=== PATIENT | female | born 1965 | race Caucasian/White ===

== ENCOUNTER 2021-06-22 14:24 | Day surgery (SDC) | payer OTHER ==
[2021-06-22] MEDS ORDERED: BUPIVACAINE 0.5% VIAL IJ ONE (14:25)
[2021-06-22] MEDS ORDERED: Depo-Medrol 40 MG/ML IM ONE (14:25)
[2021-06-22] MEDS ORDERED: Xylocaine 1% Vial 30 ML PF IJ ONE (14:25)
--- NOTE | 2021-06-22 18:52 | XRAY ---
Indication: Bilateral SI joint injection. Intraoperative fluoroscopy provided for 19 seconds. 5 digital spot image submitted for interpretation demonstrates posterior needle tip projecting over the inferior left and right SI joint. Correlate with intraoperative findings/report.
--- NOTE | 2021-06-22 18:53 | XRAY ---
19 seconds fluoroscopy time in surgery for injections of both SI joints.
== END 2021-06-22 17:10 | disposition home or self-care (01) ==
LOC: SDC-PAIN 14:24 → SDC 14:24 → SDC-PAIN 17:10
PROVIDERS: ATTEND Psychiatry & Neurology Pain Medicine
DX: M46.1 Sacroiliitis, not elsewhere classified (principal); Z79.899 Other long term (current) drug therapy
CPT/HCPCS: 27096; 72202; 77002; G0260; J1030; J2001